=== PATIENT | female | born 2000 | race Caucasian/White ===

== ENCOUNTER 2024-05-21 00:45 | Emergency (ER) | payer OTHER ==
[2024-05-21] MEDS: Cephalexin 500 MG Cap PO ONE (01:25)
== END 2024-05-21 01:25 | disposition home or self-care (01) ==
LOC: JD.ED 00:45
DX: L08.9 Local infection of the skin and subcutaneous tissue, unspecified (principal); Z91.018 Allergy to other foods
CPT/HCPCS: 99283; A9270; 99282